=== PATIENT | female | born 1970 | race Hispanic/Latino ===

== ENCOUNTER 2019-10-31 15:11 | Emergency (ER) | payer BC ==
[2019-10-31] MEDS ORDERED: Orphenadrine 100 MG Tab.ER PO STA (15:37)
--- NOTE | 2019-10-31 15:43 | EDM.PDOC ---
ED HPI GENERAL MEDICAL PROBLEM - General Chief Complaint: Back Pain or Injury Stated Complaint: NECK PAIN Time Seen by Provider: 10/31/19 15:21 Source of Information: Reports: Patient History Limitations: Reports: No Limitations - History of Present Illness INITIAL COMMENTS - FREE TEXT/NARRATIVE: Ms. Kaminski is a very pleasant 49-year-old woman with no chronic medical problems, who states that she woke with midline posterior neck pain morning, 10/28/2019. She describes the pain as throbbing in character. It radiates down her left upper extremity and to her upper left back. She states that she feels some dizziness if she moves her head around, but moving her head does not modify her upper extremity or back pain. She states that her symptoms improve if she lies down, but then worsens again after she gets up, particularly if she performs certain functions, such as doing laundry. No recent injury to her neck. No prior similar symptoms. The patient states that she took some ibuprofen, which seemed to help her neck pain, but upset her stomach. Here in the ED, the patient's initial BP is found to be elevated at 181/95, otherwise, she is hemodynamically stable, afebrile, saturating 99% on room air. The patient does not have a PCP. - Related Data Allergies Allergy/AdvReac Type Severity Reaction Status Date / Time No Known Allergies Allergy Verified 10/31/19 15:23 Home Meds: Home Meds Orphenadrine [Norflex] 1 tab PO Q12H PRN #14 tab.er 10/31/19 [Rx] Past Medical History HEENT History: Reports: Impaired Vision Other HEENT History: wears glasses - Past Surgical History HEENT Surgical History: Reports: Oral Surgery (wisdom teeth extraction) Female Surgical History: Reports: Section (x 3), Hysterectomy ( partial) Social & Family History - Family History Family Medical History: Noncontributory - Tobacco Use Smoking Status *Q: Current Every Day Smoker Years of Tobacco use: 5 Packs/Tins Daily: 0.3 Packs/Tins Daily Comment: Down from >1/2 ppd - Caffeine Use Caffeine Use: Reports: Coffee - Alcohol Use Alcohol Use History: No - Recreational Drug Use Recreational Drug Use: No - Living Situation & Occupation Living situation: Reports: , with Family (2 adult kids) Occupation: Employed ([employer]) ED ROS GENERAL - Review of Systems Review Of Systems: Comprehensive ROS is negative, except as noted in HPI. ED EXAM, UPPER BACK/NECK PAIN - Physical Exam Exam: See Below Exam Limited By: No Limitations General Appearance: Alert, WD/WN, No Apparent Distress Eye Exam: Bilateral Eye: EOMI, Normal Inspection Ears Exam: Normal External Exam, Hearing Grossly Normal Nose Exam: Normal Inspection Throat/Mouth Exam: Normal Inspection, Normal Lips, Normal Voice, No Airway Compromise Head Exam: Atraumatic, Normocephalic Neck Exam: Full Range of Motion, Normal Alignment, Normal Inspection, Muscle Spasm, Tenderness (Reproducible, with palpation of the mid-neck, both midline and to the bilateral paraspinous muscles), Other (No modification of the pain with turning her head fully to the left or right, or with full extension. Some relief of symptoms with full flexion.) Neurologic: No Motor/Sensory Deficits, Alert, Oriented x 3 Psychiatric: Normal Affect Skin Exam: Normal Color, Warm/Dry Course - Vital Signs Last Recorded V/S: Last Vital Signs Temp 36.7 C 10/31/19 15:19 Pulse 69 10/31/19 15:19 Resp 16 10/31/19 15:19 BP 181/95 H 10/31/19 15:19 Pulse Ox 99 10/31/19 15:19 - Orders/Labs/Meds Orders: Active Orders 24 hr Category Date Time Status Orphenadrine [Norflex] Med 10/31/19 15:37 Stat 100 mg PO ONETIME STA - Re-Assessments/Exams Free Text/Narrative Re-Assessment/Exam: 10/31/19 15:38 While the patient's history is concerning for cervical radiculopathy, her physical exam is most consistent with a local muscle spasm of her neck, and is not consistent with cervical radiculopathy. I am therefore recommending that she be treated with Norflex, which she can take with either Tylenol or ibuprofen as needed for discomfort. The patient is agreeable, and also requested a note for work. Departure - Departure Time of Disposition: 15:39 Disposition: Home, Self-Care 01 Condition: Good Clinical Impression: Neck muscle spasm - Discharge Information *PRESCRIPTION DRUG MONITORING PROGRAM REVIEWED*: Not Applicable *COPY OF PRESCRIPTION DRUG MONITORING REPORT IN PATIENT CARRIE: Not Applicable Referrals: PCP,None [Primary Care Provider] - Forms: ED Department Discharge, ED Return to Work/School Form Additional Instructions: You were seen in the emergency room after developing throbbing posterior neck pain morning. Based on your history and physical examination, your pain is most likely due to a neck muscle spasm, and is unlikely due to a "pinched nerve". You have been started on the muscle relaxant Norflex, and a prescription for Norflex has been sent to the [facility], located in the [facility] grocery store. Take 1 tablet of Norflex every 12 hours, starting tomorrow morning, 11/01/2019, as prescribed. In addition to Norflex, you may also take [id number] Tylenol or ibuprofen as needed for discomfort. A note for work has been provided to you. If any other problems, please do not hesitate to return to the ER. Sepsis Event Note - Evaluation Sepsis Screening Result: No Definite Risk - Focused Exam Vital Signs: Vital Signs Temp Pulse Resp BP Pulse Ox 10/31/19 15:19 36.7 C 69 16 181/95 H 99 Date Exam was Performed: 10/31/19 Time Exam was Performed: 15:38 - My Orders Last 24 Hours: My Active Orders 10/31/19 15:37 Orphenadrine [Norflex] 100 mg PO ONETIME STA - Assessment/Plan Last 24 Hours: My Active Orders 10/31/19 15:37 Orphenadrine [Norflex] 100 mg PO ONETIME STA
== END 2019-10-31 15:50 | disposition home or self-care (01) ==
LOC: JD.ED 15:11
DX: M62.838 Other muscle spasm (principal); F17.210 Nicotine dependence, cigarettes, uncomplicated
CPT/HCPCS: 99283; A9270

== ENCOUNTER 2020-03-20 20:46 | Emergency (ER) | payer BC ==
--- NOTE | 2020-03-20 22:09 | CR ---
Chest: Portable view of the chest was obtained. Comparison: No prior chest imaging is available. Heart size and mediastinum are normal. Lungs are clear with no acute parenchymal change. Bony structures are unremarkable. Impression: 1. Nothing acute is seen on portable chest x-ray. Diagnostic code #1 Study was dictated in MDT
--- NOTE | 2020-03-20 22:38 | EDM.PDOC ---
ED HPI GENERAL MEDICAL PROBLEM - General Chief Complaint: Respiratory Problem Stated Complaint: SOB Time Seen by Provider: 03/20/20 21:30 Source of Information: Reports: Patient History Limitations: Reports: No Limitations - History of Present Illness INITIAL COMMENTS - FREE TEXT/NARRATIVE: Patient is a 49-year-old female presenting to the emergency department with complaints of intermittent episodes of shortness of breath as well as hot flashes and intermittent dizziness. 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 She is feeling well now. Patient is questioning if this could be related to menopause. She has had a hysterectomy, however she does still have her ovaries, therefore she cannot base her menopause on her periods. He denies any chest pain associated with this. Denies any known sick exposures, however she does work with a new [employer], so there is always a possible that she has been exposed to COVID. Denies any chronic health conditions. She has no cardiac problems. On triage, patient's blood pressure was found to be elevated at 170/102, oxygen saturation 100%, respiratory rate 20, pulse 80, temp 97.3. Patient states that she tends to run high blood pressures when she is in a stressful situation such as being in the emergency department. She states they always come back down to normal. 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: - Past Surgical History HEENT Surgical History: Reports: Oral Surgery Female Surgical History: Reports: Section, Hysterectomy Social & Family History - Family History Family Medical History: Noncontributory - Tobacco Use Smoking Status *Q: Current Every Day Smoker Years of Tobacco use: 8 Packs/Tins Daily: 0.2 - Caffeine Use Caffeine Use: Reports: Coffee - Recreational Drug Use Recreational Drug Use: No - Living Situation & Occupation Living situation: Reports: , with Family (2 adult kids) Occupation: Employed ([employer]) ED ROS GENERAL - Review of Systems Review Of Systems: See Below Constitutional: Denies: Fever, Chills, Weakness, Fatigue HEENT: Reports: No Symptoms Respiratory: Reports: Shortness of Breath. Denies: Wheezing, Pleuritic Chest Pain, Cough Cardiovascular: Reports: Lightheadedness. Denies: Chest Pain, Palpitations Endocrine: Reports: No Symptoms GI/Abdominal: Reports: No Symptoms. Denies: Abdominal Pain, Nausea, Vomiting : Reports: No Symptoms Musculoskeletal: Reports: No Symptoms Skin: Reports: No Symptoms Neurological: Reports: Dizziness Psychiatric: Reports: No Symptoms Hematologic/Lymphatic: Reports: No Symptoms Immunologic: Reports: No Symptoms ED EXAM, GENERAL - Physical Exam Exam: See Below General Appearance: Alert, WD/WN, No Apparent Distress Respiratory/Chest: No Respiratory Distress, Lungs Clear, Normal Breath Sounds, No Accessory Muscle Use, Chest Non-Tender Cardiovascular: Normal Peripheral Pulses, Regular Rate, Rhythm, No Edema, No Gallop, No JVD, No Murmur, No Rub GI/Abdominal: Normal Bowel Sounds, Soft, Non-Tender, No Organomegaly, No Distention, No Abnormal Bruit, No Mass Neurological: Alert, Oriented, CN II-XII Intact, Normal Cognition, Normal Gait, Normal Reflexes, No Motor/Sensory Deficits Psychiatric: Normal Affect, Normal Mood Skin Exam: Warm, Dry, Intact, Normal Color, No Rash EKG INTERPRETATION EKG Date: 03/20/20 Time: 22:45 Rhythm: NSR Rate (Beats/Min): 50 [place]: Normal P-Wave: Present QRS: Normal ST-T: Normal QT: Normal Course - Vital Signs Last Recorded V/S: Last Vital Signs Temp 97.3 F 03/20/20 20:57 Pulse 80 03/20/20 20:57 Resp 20 03/20/20 20:57 BP 170/102 H 03/20/20 20:57 Pulse Ox 100 03/20/20 20:57 - Orders/Labs/Meds Labs: Laboratory Tests 03/20/20 03/20/20 03/20/20 Range/Units 21:54 21:54 21:54 WBC 10.10 H (3.98-10.04) K/mm3 RBC 5.13 (3.98-5.22) M/mm3 Hgb 13.6 (11.2-15.7) gm/dl Hct 42.2 (34.1-44.9) % MCV 82.3 (79.4-94.8) fl MCH 26.5 (25.6-32.2) pg MCHC 32.2 (32.2-35.5) g/dl RDW Std Deviation 42.8 (36.4-46.3) fL Plt Count 376 H (182-369) K/mm3 MPV 8.9 L (9.4-12.3) fl Neut % (Auto) 53.1 (34.0-71.1) % Lymph % (Auto) 35.0 (19.3-51.7) % Bartholomew % (Auto) 5.9 (4.7-12.5) % Eos % (Auto) 5.2 (0.7-5.8) Baso % (Auto) 0.4 (0.1-1.2) % Neut # (Auto) 5.35 (1.56-6.13) K/mm3 Lymph # (Auto) 3.54 (1.18-3.74) K/mm3 Bartholomew # (Auto) 0.60 H (0.24-0.36) K/mm3 Eos # (Auto) 0.53 H (0.04-0.36) K/mm3 Baso # (Auto) 0.04 (0.01-0.08) K/mm3 Manual Slide Review Normal smear D-Dimer, Quantitative 0.21 (0.19-0.50) mg/L Sodium 140 (136-145) mEq/L Potassium 4.4 (3.5-5.1) mEq/L Chloride 103 (98-107) mEq/L Carbon Dioxide 29 (21-32) mEq/L Anion Gap 12.4 (5-15) BUN 18 (7-18) mg/dL Creatinine 0.9 (0.55-1.02) mg/dL Est Cr Clr Drug Dosing 55.80 mL/min Estimated GFR (MDRD) > 60 (>60) mL/min BUN/Creatinine Ratio 20.0 H (14-18) Glucose 91 (74-106) mg/dL Calcium 9.0 (8.5-10.1) mg/dL Ferritin (8-252) ng/ml Total Bilirubin 0.2 (0.2-1.0) mg/dL AST 23 (15-37) U/L ALT 29 (14-59) U/L Alkaline Phosphatase 85 (46-116) U/L Lactate Dehydrogenase 161 (81-234) U/L Troponin I < 0.017 (0.00-0.056) ng/mL C-Reactive Protein 0.6 (<1.0) mg/dL Total Protein 8.1 (6.4-8.2) g/dl Albumin 4.0 (3.4-5.0) g/dl Globulin 4.1 gm/dL Albumin/Globulin Ratio 1.0 (1-2) SARS-CoV-2 (PCR) (NOT DETECT) 03/20/20 03/20/20 Range/Units 21:54 22:22 WBC (3.98-10.04) K/mm3 RBC (3.98-5.22) M/mm3 Hgb (11.2-15.7) gm/dl Hct (34.1-44.9) % MCV (79.4-94.8) fl MCH (25.6-32.2) pg MCHC (32.2-35.5) g/dl RDW Std Deviation (36.4-46.3) fL Plt Count (182-369) K/mm3 MPV (9.4-12.3) fl Neut % (Auto) (34.0-71.1) % Lymph % (Auto) (19.3-51.7) % Bartholomew % (Auto) (4.7-12.5) % Eos % (Auto) (0.7-5.8) Baso % (Auto) (0.1-1.2) % Neut # (Auto) (1.56-6.13) K/mm3 Lymph # (Auto) (1.18-3.74) K/mm3 Bartholomew # (Auto) (0.24-0.36) K/mm3 Eos # (Auto) (0.04-0.36) K/mm3 Baso # (Auto) (0.01-0.08) K/mm3 Manual Slide Review D-Dimer, Quantitative (0.19-0.50) mg/L Sodium (136-145) mEq/L Potassium (3.5-5.1) mEq/L Chloride (98-107) mEq/L Carbon Dioxide (21-32) mEq/L Anion Gap (5-15) BUN (7-18) mg/dL Creatinine (0.55-1.02) mg/dL Est Cr Clr Drug Dosing mL/min Estimated GFR (MDRD) (>60) mL/min BUN/Creatinine Ratio (14-18) Glucose (74-106) mg/dL Calcium (8.5-10.1) mg/dL Ferritin 197 (8-252) ng/ml Total Bilirubin (0.2-1.0) mg/dL AST (15-37) U/L ALT (14-59) U/L Alkaline Phosphatase (46-116) U/L Lactate Dehydrogenase (81-234) U/L Troponin I (0.00-0.056) ng/mL C-Reactive Protein (<1.0) mg/dL Total Protein (6.4-8.2) g/dl Albumin (3.4-5.0) g/dl Globulin gm/dL Albumin/Globulin Ratio (1-2) SARS-CoV-2 (PCR) Not detected (NOT DETECT) - Re-Assessments/Exams Free Text/Narrative Re-Assessment/Exam: Patient is a 49-year-old female presenting to the emergency department with complaints of intermittent episodes of shortness of breath, hot flashes, and some mild dizziness while at work this evening. Symptoms of since resolved and she states she feels fine. Patient is wondering if this could be related to menopause. She has had a hysterectomy but does still have both ovaries, therefore she would not build to gauge menopause based on her menstrual cycle. She denies any underlying cardiac abnormalities. Blood pressure in triage was elevated, however she states that this is typical in a stressful situation for her. It generally comes back down to normal once she relaxes. I have ordered a COVID work-up including a CBC, CMP, CRP, d-dimer, LDH, ferritin, EKG of the heart, chest x-ray, and a state send out coronavirus test. 03/20/20 22:51 Patient's work-up was found be grossly unremarkable. D-dimer is normal. Troponin is negative. Chest xray was normal. EKG was negative for any acute abnormalities. Patient's coronavirus test is a state send out, therefore results would not be available for 24 to 48 hours. Discussed with patient that her symptoms could definitely be related to menopause as well. We will discharge her home with return precautions. Discharge instructions as documented. Departure - Departure Time of Disposition: 22:51 Disposition: Home, Self-Care 01 Condition: Good Clinical Impression: Shortness of breath on exertion, Hot flashes - Discharge Information *PRESCRIPTION DRUG MONITORING PROGRAM REVIEWED*: No *COPY OF PRESCRIPTION DRUG MONITORING REPORT IN PATIENT CARRIE: No Instructions: Shortness of Breath, Adult, [id number] Referrals: PCP,None [Primary Care Provider] - Forms: ED Department Discharge, ED Return to Work/School Form Additional Instructions: You were seen in the emergency department for intermittent episodes of shortness of breath while at work as well as hot flashes and some dizziness. He work-up included blood work, a chest x-ray, EKG of your heart, and a coronavirus test. Your work-up was found to be normal. Chest x-ray showed no signs of pneumonia or any other abnormalities. EKG was normal. Lab work was all found to be normal as well. Results of the coronavirus test take 24 to 48 hours to become available. Recommend that you self isolate until results are available. As we discussed, there is always a possibility that this could be related to menopause. Return to the ER for any new or worsening symptoms of concern. Sepsis Event Note (ED) - Evaluation Sepsis Screening Result: No Definite Risk
== END 2020-03-20 23:00 | disposition home or self-care (01) ==
LOC: JD.ED 20:46
DX: R06.02 Shortness of breath (principal); N95.1 Menopausal and female climacteric states; R42 Dizziness and giddiness; F17.210 Nicotine dependence, cigarettes, uncomplicated; Z98.890 Other specified postprocedural states; Z90.710 Acquired absence of both cervix and uterus; Z20.828 Contact with and (suspected) exposure to other viral communicable diseases
CPT/HCPCS: 36415; 71045; 71045-26; 80053; 82728; 83615; 84484; 85025; 85379; 86140; 93005; 93010; 99282; 99285-25; U0002

== ENCOUNTER 2023-04-13 21:19 | Emergency (ER) | payer BC ==
[2023-04-13] MEDS ORDERED: Aspirin 81 MG Tab.Chew PO ONE (22:16)
[2023-04-13] MEDS ORDERED: Losartan 50 MG Tab PO ONE (22:17)
== END 2023-04-13 23:24 | disposition home or self-care (01) ==
LOC: JD.ED 21:19
DX: I10 Essential (primary) hypertension (principal); Z79.899 Other long term (current) drug therapy
CPT/HCPCS: 99283; A9270